=== PATIENT | male | born 1990 | race Hispanic/Latino ===

== ENCOUNTER 2017-08-27 11:33 | Emergency (ER) | payer SELFPAY ==
--- NOTE | 2017-08-27 13:08 | RAD ---
FOUR VIEWS OF THE RIGHT KNEE: INDICATION: Dislocated right knee patella. FINDINGS: There is soft tissue swelling overlying the anterior aspect of the right knee. There is joint capsul ar distention. No definite acute fracture or subluxation is evident. IMPRESSION: Prominent soft tissue swelling and joint capsular distention. No acute osseous abnormality. POS: [facility]
[2017-08-27] MEDS ORDERED: Ketorolac Tromethamine 60 MG/2 ML VIAL ONE (14:31)
--- NOTE | 2017-08-27 15:12 | ULT ---
RIGHT LOWER EXTREMITY VENOUS DOPPLER ULTRASOUND: Date: 08/27/17 COMPARISON: None. HISTORY: Pain, injury, swelling, recent right patellar dislocation. TECHNIQUE: Multiplanar Whitfield scale sonographic imaging of the venous structures of the right lower extremity obta ined with color flow and spectral analysis. FINDINGS: Right common femoral vein, greater saphenous vein, profunda femoral vein, femoral vein, popliteal vei n, and posterior tibial vein are patent. There is normal blood flow, augmentation, and compression wi thin the deep venous on the right with no evidence for deep venous thrombosis. IMPRESSION: No evidence for deep venous thrombosis of the right lower extremity. POS: [facility]
== END 2017-08-27 16:01 | disposition home or self-care (01) ==
LOC: ERS 11:33
DX: M25.561 Pain in right knee (principal); F17.210 Nicotine dependence, cigarettes, uncomplicated
CPT/HCPCS: J1885